=== PATIENT | female | born 1985 | race Caucasian/White ===

== ENCOUNTER 2018-12-22 14:27 | Emergency (ER) | payer OTHER ==
--- NOTE | 2018-12-22 16:36 | ERPHSYRPT ---
- History of Present Illness Time Seen by Provider: 12/22/18 16:24 Source: patient Exam Limitations: no limitations Patient Subjective Stated Complaint: Pt mother states "She has rheumatoid arthritis and the physician put her on andrés and she started to get these welts on her lower legs. Dr. Alston took her off the andrés and gave her a topical ointment for her lower legs and they seem to be getting worse. We went to the family practice this morning to césar case and she said we should just come on over here." Triage Nursing Assessment: Pt presented through the front doors sitting in a wheelchair, alert and oriented X 3, skin pwd. Pt has red dry skin with weeping wounds in lower extremeties bilat. Physician History: 33-year-old white female arrives with complaint of draining lesion on her legs patient gives a history that she was on him her back in August she apparently has rheumatoid arthritis and eczema she's been seeing a survey rodman she apparently was put on room air and developed a rash which was a diffuse. She has been having a rash on her lower extremities and she's been having a draining lesion on her left anterior yi. She states that the draining began approximately one week ago she has approximately 2 cm draining lesion on the left anterior yi she does have changes of eczema on her feet and ankles and skin changes on her lower legs. She has no fevers. Patient apparently had been seen by César Case who had consider placing the patient on Bactrim however the patient's grandmother apparently had a history of rheumatoid arthritis and had severe problems after having lesions on her legs., Currently the patient is not in acute distress Past medical history includes epilepsy, high blood pressure, rheumatoid arthritis Past surgical history includes Last menstrual period now patient denies chance of . Timing/Duration: other (ppatient with skin changes on her lower legs since August draining lesion left anterior yi since one week) Severity: moderate Modifying Factors: Improves With: other (had been onHumira prior to onset of skin changes) Associated Symptoms: rash, No nausea, No vomiting, No abdominal pain, No shortness of breath, No heartburn, No diaphoresis, No cough, No chills, No chest pain, No fever, No headaches, No loss of appetite, No malaise Allergies/Adverse Reactions: Penicillins Allergy (Severe, Verified 12/22/18 14:45) Swelling Home Medications: Amlodipine Besylate [Norvasc] 10 mg PO DAILY 12/22/18 [History] Betamethasone/Propylene Glyc [Betamethasone Dp Aug 0.05% Crm] 15 gm TP DAILY [History] Folic Acid 1 mg PO DAILY 12/22/18 [History] Hydrochlorothiazide 25 mg PO DAILY 12/22/18 [History] Hx Tetanus, Diphtheria Vaccination/Date Given: Yes Hx Influenza Vaccination/Date Given: Yes Hx Pneumococcal Vaccination/Date Given: No Immunizations Up to Date: Yes - Review of Systems Constitutional: No Fever, No Chills Eyes: No Symptoms Ears, Nose, & Throat: No Symptoms Respiratory: No Cough, No Dyspnea Cardiac: No Chest Pain, No Edema, No Syncope Abdominal/Gastrointestinal: No Abdominal Pain, No Nausea, No Vomiting, No Diarrhea Genitourinary Symptoms: No Dysuria Musculoskeletal: No Back Pain, No Neck Pain Skin: Other (chronic skin changes lower legs, eczema feet and ankle, draining lesion 2 cm left anterior yi) Neurological: No Dizziness, No Focal Weakness, No Sensory Changes Psychological: No Symptoms Endocrine: No Symptoms All Other Systems: Reviewed and Negative - Past Medical History Pertinent Past Medical History: Yes Neurological History: Epilepsy ENT History: No Pertinent History Cardiac History: Hypertension Respiratory History: No Pertinent History Endocrine Medical History: No Pertinent History Musculoskeletal History: Rheumatoid Arthritis GI Medical History: No Pertinent History History: No Pertinent History Psycho-Social History: No Pertinent History Female Reproductive Disorders: No Pertinent History - Past Surgical History Past Surgical History: Yes Other Surgical History: cesarian - Social History Smoking Status: Current every day smoker How long have you smoked: 17 years Exposure to second hand smoke: Yes Drug Use: none Patient Lives Alone: No - Female History Hx Last Menstrual Period: 12/22/2018 Hx Now: No - Nursing Vital Signs Nursing Vital Signs: Initial Vital Signs Temperature 98.0 F 12/22/18 14:34 Pulse Rate 86 12/22/18 14:34 Respiratory Rate 16 12/22/18 14:34 Blood Pressure 113/71 12/22/18 14:34 O2 Sat by Pulse Oximetry 96 12/22/18 14:34 Pain Scale Pain Intensity 8 - Physical Exam General Appearance: no apparent distress, alert Eye Exam: PERRL/EOMI, eyes nml inspection Ears, Nose, Throat Exam: normal ENT inspection, TMs normal, pharynx normal, moist mucous membranes Neck Exam: normal inspection, non-tender, supple, full range of motion Respiratory Exam: normal breath sounds, lungs clear, No respiratory distress Cardiovascular Exam: regular rate/rhythm, normal heart sounds, normal peripheral pulses, capillary refill <2 sec Gastrointestinal/Abdomen Exam: soft, normal bowel sounds, No tenderness, No mass Back Exam: normal inspection, normal range of motion, No CVA tenderness, No vertebral tenderness Extremity Exam: other (chronic skin changes lower legs, eczema of feet and ankles, draining lesion left anterior yi 2 cm) Neurologic Exam: alert, oriented x 3, cooperative, bilingual instructor II-XII nml as tested, normal mood/affect, nml cerebellar function, nml station & gait, sensation nml, No motor deficits Skin Exam: normal color, warm, dry, No rash Lymphatic Exam: No adenopathy SpO2 Interpretation: normal (97%) SpO2: 97 Ordered Tests: Active Orders 24 hr Category Date Time Status CULTURE,WOUND Stat Lab 12/22/18 16:36 Uncollected - Progress Progress: improved Progress Note: 12/22/18 16:54 33-year-old white female with history of chronic skin changes on her lower extremity since beginning him her back in August patient has been seeing a survey rodman secondary to this and him her had been stopped she complains of a draining lesion of the left anterior yi which has been present for one week she had seen her nurse practitioner this morning who planned on placing the patient on Bactrim. Patient is planning to see a survey rodman a week from Thursday. Patient really has some chronic skin changes lower extremities she has what appears to be eczema on her ankle she has a 2 cm draining lesion on her left anterior yi. Will go ahead and place patient on Bactrim DS one orally twice a day for 10 days cultures have been obtained patient followup with her family doctor and/or survey rodman. - Departure Departure Disposition: Home Clinical Impression: Cellulitis of left leg, History of rheumatoid arthritis Eczema Qualifiers: Eczema type: unspecified Qualified Code(s): L30.9 - Dermatitis, unspecified Condition: Fair Critical Care Time: No Referrals: SUSANNE BRENNAN MD [Primary Care Provider] - Additional Instructions: Return home. Bactrim DS one orally twice a day for 10 days. Followup with your family Dr. or your survey rodman. At scheduled appointment sooner if symptoms are worse or not improving in 48 hours Return for acute distress or for severe symptoms. Prescriptions: Smz/Tmp Ds Tablet [Bactrim Ds Tablet] 1 tab PO BID #20 tablet
[2018-12-22 16:59] VITALS: O2SAT 97
[2018-12-22] MEDS ORDERED: BACTRIM DS TABLET PO ONE ×2 (16:59→17:07)
[2018-12-22 17:04] VITALS: BP 126/100; PULSE 63
== END 2018-12-22 17:23 | disposition home or self-care (01) ==
LOC: ED 14:27
DX: L03.116 Cellulitis of left lower limb (principal); M06.9 Rheumatoid arthritis, unspecified; L30.9 Dermatitis, unspecified
CPT/HCPCS: 87070; 87077; 87186; 99284; A9270-GY